=== PATIENT | female | born 1945 | race Caucasian/White ===

== ENCOUNTER → 2019-08-07 12:58 | Outpatient (BNVA) | payer MEDICARE, SELFPAY | PROVIDERS: Family Provider Family Medicine; Referring Provider Obstetrics & Gynecology Female Pelvic Medicine and Reconstructive Surgery; Visit Provider Obstetrics & Gynecology Female Pelvic Medicine and Reconstructive Surgery | DX: D25.9 Leiomyoma of uterus, unspecified (principal); R89.9 Unspecified abnormal finding in specimens from other organs, systems and tissues | CPT/HCPCS: 76830 ==

== ENCOUNTER 2019-11-11 09:24 | Day surgery (SDC) | payer MEDICARE, SELFPAY ==
[2019-11-05 16:25] LABS: Basophils % 0.3 %; Eosinophils # 0.1 10^3/uL (0.0-0.8); Eosinophils % 1.5 %; Hematocrit 24.9 % (37.0-47.0); Hemoglobin 8.2 g/dL (11.5-15.3); Lymphocytes # 2.8 10^3/uL (0.8-4.8); Lymphocytes % 42.7 %; Mean Corpuscular HGB Conc 32.9 g/dL (30.0-36.0); Mean Corpuscular Hemoglobin 32.7 pg (28.0-34.0); Mean Corpuscular Volume 99.2 fL (81-99); Mean Platelet Volume 9.1 fL (7.4-10.4); Monocytes # 0.5 10^3/uL (0.2-0.9); Monocytes % 7.4 %; Neutrophils # 3.2 10^3/uL (1.8-7.7); Neutrophils % 47.9 %; Nucleated Red Blood Cells % 0 %; Platelet Count 317 10^3/cmm (130-400); Red Blood Count 2.51 10^6/uL (4.1-5.3); Red Cell Distribution Width 13.4 % (12.1-15.1); White Blood Count 6.7 10^3/uL (4.0-10.0)
[2019-11-05 16:43] LABS: Alanine Aminotransferase 17 U/L (0-33); Albumin Level 4.3 g/dL (3.5-5.2); Alkaline Phosphatase 58 IU/L (35-105); Anion Gap 12.6 (5-19); Aspartate Amino Transferase 22 U/L (0-32); Blood Urea Nitrogen 22 mg/dL (8-23); Calcium 8.9 mg/dL (8.5-10.5); Carbon Dioxide 31 mmol/L (22-29); Chloride 100 mmol/L (98-107); Globulin 1.8 g/dL (1.3-4.6); Glucose 103 mg/dL (65-115); Osmolality Calculated 287 mOsm/kg (285-295); Potassium 3.6 mmol/L (3.5-5.1); Sodium 140 mmol/L (136-145); Total Bilirubin 0.2 mg/dL (0.15-1.2); Total Protein 6.1 g/dL (6.6-8.7)
[2019-11-05 16:49] LABS: INR 0.93 (0.8-1.2)
[2019-11-06 14:11] VITALS: BMI 21.2
--- NOTE | 2019-11-11 10:06 | W.PM.OPSUD ---
Surgery/Procedure H&P Update DATE OF PROCEDURE: November 11, 2019 DATE H&P PERFORMED: 11/07/19 H&P UPDATE INFORMATION: I have reviewed H&P completed within last 30 days, I have examined patient prior to procedure and No changes to prior documentation PREOP DIAGNOSIS: Bleeding per rectum PRIMARY INDICATION FOR PROCEDURE: The same PLANNED PROCEDURE: Operation Date: 11/11/19 10:40 Proposed Procedures p Colonoscopy 15199 K62.5(Not Applicable) - Nir Cavazos MD
[2019-11-11 10:08] VITALS: BP 145/93; PULSE 85; RESP 18; TEMP 36.6; O2SAT 97
[2019-11-11] MEDS: sodium chloride 0.9% 1,000 ML 30 ML IV (10:31)
--- NOTE | 2019-11-11 10:53 | ANES.PREANE2 ---
Pre-Anesthetic Assessment Pre-Anesthetic Assessment: Height/Weight: Height 1.63 m Weight 56.245 kg Temp Pulse Resp BP Pulse Ox 97.9 F 85 18 145/93 97 11/11/19 10:08 11/11/19 10:08 11/11/19 10:08 11/11/19 10:08 11/11/19 10:08 Preop Diagnosis: Bleeding per rectum Proposed Procedure: Operation Date: 11/11/19 10:40 Proposed Procedures p Colonoscopy 52158 K62.5(Not Applicable) - Nir Cavazos MD Last intake: Intake Last Liquid Date 11/10/19 Last Liquid Time 21:00 Last Solid Date 11/09/19 Last Solid Time 19:00 Social: Social History: Tobacco (quit) and No alcohol Exam: Pre-Anes Outpt Exam: alert, oriented x 3, clear to auscultation bilaterally and regular rate & rhythm Airway: Submandibular: WNL Cervical ROM: WNL MP: 2 Dentition: Other (teeth ok) History/ROS: No significant history except as noted Pulmonary: Pulmonary: None reported CV/HEM: CV/HEM: None reported : : None reported Hepatic: Hepatic: None reported GI: GI: None reported Metabolic: Metabolic: None reported Musc/skel: Musc/skel: Lower Back Pain and OA/DJD Neuropsych: Neuropsych: Anxiety and Depression Anesthetic Plan: ASA status: 3 Anesthesia: Anesthesia Evaluation and MAC Risk of > 500 ml blood loss (7ml/kg in children): No Meds/Allergies Current Medications: Current Medications Generic Name Dose Route Start Last Admin Trade Name Freq PRN Reason Stop Dose Admin Sodium Chloride 1,000 mls @ 30 ml s/hr 11/11/19 10:15 11/11/19 10:31 Sodium Chloride 0.9% IV 30 mls/hr .Q24H EDINSON Administration PFSH Anesthesia PFSH: Medical History Black tarry stools Bleeding per rectum Depression History of colitis Surgical History History of breast augmentation reports she has had 2 surgeries. Reports that she believes they were under the muscle History of eye surgery History of tonsillectomy and adenoidectomy age 10 Family History Mother Hypertension Thyroid disease Grandfather Diabetes maternal Sister Thyroid disease Social History Smoking and tobacco status: former smoker Quit status (tobacco): has quit using tobacco Year quit tobacco: 1980 Alcohol intake: current Alcohol intake frequency: few times a week Data Anesthesia CBC & Chem 7: 11/05/19 15:47 11/05/19 15:47 Cardiac Studies: No Data to Display
[2019-11-11 12:14] VITALS: BP 128/73; PULSE 85; RESP 16; TEMP 36.3; O2SAT 95
[2019-11-11 12:23] VITALS: BP 118/85; PULSE 83; RESP 18; O2SAT 99
== END 2019-11-11 12:48 | disposition home or self-care (01) ==
PROVIDERS: PCP Family Medicine; Visit Provider Surgery
PROC: 0DJD8ZZ Inspection of Lower Intestinal Tract, Via Natural or Artificial Opening Endoscopic (ICD-10-PCS; CPT 45378; principal; 2019-11-11 10:35)
DX: K62.5 Hemorrhage of anus and rectum (principal); K57.30 Diverticulosis of large intestine without perforation or abscess without bleeding; Z82.49 Family history of ischemic heart disease and other diseases of the circulatory system; Z87.891 Personal history of nicotine dependence; M19.90 Unspecified osteoarthritis, unspecified site
CPT/HCPCS: 12345; 36415; 45378; 80053; 85025; 85610; J2001; J2704; J7030

== ENCOUNTER 2019-12-01 10:34 | Inpatient (IN) | payer MEDICARE, SELFPAY ==
[2019-12-01] VITALS (47 sets, daily range): BP systolic 114–155; BP diastolic 46–80; PULSE 83–105; RESP 9–22; TEMP 36.7–37.3; O2SAT 94–100; BMI 21.1
--- NOTE | 2019-12-01 10:52 | ED_ITS ---
HPI - GI Bleed General: Chief complaint: GI Bleed Stated complaint: ABD PAIN BLOOD IN STOOL AND URINE Time Seen by Provider: 12/01/19 10:53 Source: patient Mode of arrival: ambulatory Limitations: no limitations History of Present Illness: HPI Narrative: 74-year-old female with a history of GI bleeds states she started having blood and blood in her stool yesterday and is continued today and has had weakness. She had an EGD done in April and a colonoscopy a month ago showed no findings. She denies any pain or fever. complaint: melena Onset (ago): day(s) Severity: moderate Relieving factors: none Exacerbating factors: none Associated symptoms: Denies abdominal pain, chills, easy bruising, fever(s), headache(s), nausea, rash or vomiting Review of Systems Const: Denies: fever(s), chills, body aches or change in appetite Eyes: Denies: blurry vision or eye discomfort ENMT: Denies: throat pain or dental pain Card: Denies: chest pain Resp: Denies: dyspnea GI: Reports: hematemesis and hematochezia; Denies: abdominal pain, nausea, vomiting or diarrhea : Denies: dysuria Musc: Denies: neck pain or back pain Skin/Breast: Denies: rash Neuro: Denies: headache(s) Psych: Denies: depression Ulises/Lymph: Denies: easy bruising All/Imm: Denies: urticaria PFSH ED PFSH: Medical History Black tarry stools Bleeding per rectum Depression History of colitis Surgical History History of breast augmentation reports she has had 2 surgeries. Reports that she believes they were under the muscle History of colonoscopy (~10/2019) History of eye surgery History of tonsillectomy and adenoidectomy age 10 Family History Mother Hypertension Thyroid disease Grandfather Diabetes maternal Sister Thyroid disease Social History Smoking and tobacco status: former smoker Quit status (tobacco): has quit using tobacco Year quit tobacco: 1980 Alcohol intake: current Alcohol intake frequency: few times a week Physical Exam Const: COMMON NORMALS: no acute distress, patient oriented x3 and healthy appearing HENMT: COMMON NORMALS: normocephalic and atraumatic HEAD & SCALP: normocephalic and atraumatic Eye: COMMON NORMALS: Equal, round and reactive pupils present and EOMs intact bilaterally PUPIL: Yes Equal, round and reactive pupils present Neck/C-Spine: COMMON NORMALS: full ROM and supple Chest: COMMONS NORMALS: normal inspection of the chest and normal palpation of entire chest wall Resp: COMMON NORMALS: normal respiratory effort, No retractions, No use of accessory muscles and clear to auscultation bilaterally AUSCULTATION: clear to auscultation bilaterally Cardio: COMMON NORMALS: regular rate, regular rhythm and No murmurs present (Cardio) RATE: regular rate RHYTHM: regular rhythm GI: COMMON NORMALS: Normal to inspection, nondistended, normoactive bowel sounds present, Soft to palpation, non-tender and no masses PALPATION: Yes Soft to palpation Extremity: COMMON NORMALS: normal to inspection and full ROM Neuro: COMMON NORMALS: patient oriented x3, moves all extremities and no focal motor deficits Psych: COMMON NORMALS: mental status grossly normal, Normal thought process present and cooperative THOUGHT PROCESS: Normal thought process present Skin: COMMON NORMALS: no rashes or lesions noted and no wounds GENERAL SKIN EXAM: no rashes or lesions noted Course Vital Signs: Vital signs: Vital Signs Temperature 98.7 F 12/01/19 10:49 Pulse Rate 104 H 12/01/19 10:49 Respiratory Rate 20 H 12/01/19 10:49 Blood Pressure 114/71 12/01/19 10:49 Pulse Oximetry 96 12/01/19 10:49 MDM - GI Bleed MDM Narrative: Medical decision making narrative: Elisha presents here with an upper GI bleed causing an EMEA. Patient started on Protonix and transfuse. Patient's blood pressure here is been stable. I spoke to Dr. osei who will admit I spoke to surgeon on-call Dr. Cavazos as well who is consulted. Lab Data: Labs: Lab Results 12/01/19 12/01/19 12/01/19 Range/Units 11:30 11:30 11:58 WBC 11.6 H (4.0-10.0) 10^3/ uL RBC 1.75 L (4.1-5.3) 10^6/u L Hgb 5.1 L* (11.5-15.3) g/dL Hct 17.0 L* (37.0-47.0) % MCV 97.1 (81-99) fL MCH 29.1 (28.0-34.0) pg MCHC 30.0 (30.0-36.0) g/dL RDW 14.2 (12.1-15.1) % Plt Count 291 (130-400) 10^3/c mm MPV 9.0 (7.4-10.4) fL Neut % (Auto) 85.6 % Lymph % (Auto) 10.1 % [place] % (Auto) 3.5 % Eos % (Auto) 0.1 % Baso % (Auto) 0.2 % Neut # (Auto) 9.9 H (1.8-7.7) 10^3/u L Lymph # (Auto) 1.2 (0.8-4.8) 10^3/u L [place] # (Auto) 0.4 (0.2-0.9) 10^3/u L Eos # (Auto) 0.0 (0.0-0.8) 10^3/u L Baso # (Auto) 0.0 (0.0-0.1) 10^3/u L Nucleated RBC % (a uto) 0 % Nucleated RBCs # 0.0 /100WBC Sodium 138 (136-145) mmol/L Potassium 4.3 (3.5-5.1) mmol/L Chloride 104 (98-107) mmol/L Carbon Dioxide 18 L (22-29) mmol/L Anion Gap 20.3 H (5-19) BUN 46 H (8-23) mg/dL Creatinine 0.8 (0.5-0.9) mg/dL Glucose 220 H (65-115) mg/dL Calculated Osmolal ity 291 (285-295) mOsm/k g Calcium 9.1 (8.5-10.5) mg/dL Total Bilirubin 0.2 (0.15-1.2) mg/dL AST 15 (0-32) U/L ALT 13 (0-33) U/L Alkaline Phosphata se 52 (35-105) IU/L Total Protein 5.4 L (6.6-8.7) g/dL Albumin 3.7 (3.5-5.2) g/dL Globulin 1.7 (1.3-4.6) g/dL Lipase 26 (13-60) U/L Urine Color (Yellow) Urine Appearance (CLEAR) Urine pH (5-7) Ur Specific Gravit y (1.005-1.030) Urine Protein (Negative) Urine Glucose (UA) (Normal) Urine Ketones (Negative) Urine Blood (Negative) Urine Nitrate (Negative) Urine Bilirubin (NEGATIVE) Urine Urobilinogen (Negative) mg/dL Ur Leukocyte Patrica ase (Negative) Blood Type O Negative Rho(D) Type Negative Antibody Screen Negative 12/01/19 Range/Units 12:02 WBC (4.0-10.0) 10^3/ uL RBC (4.1-5.3) 10^6/u L Hgb (11.5-15.3) g/dL Hct (37.0-47.0) % MCV (81-99) fL MCH (28.0-34.0) pg MCHC (30.0-36.0) g/dL RDW (12.1-15.1) % Plt Count (130-400) 10^3/c mm MPV (7.4-10.4) fL Neut % (Auto) % Lymph % (Auto) % [place] % (Auto) % Eos % (Auto) % Baso % (Auto) % Neut # (Auto) (1.8-7.7) 10^3/u L Lymph # (Auto) (0.8-4.8) 10^3/u L [place] # (Auto) (0.2-0.9) 10^3/u L Eos # (Auto) (0.0-0.8) 10^3/u L Baso # (Auto) (0.0-0.1) 10^3/u L Nucleated RBC % (a uto) % Nucleated RBCs # /100WBC Sodium (136-145) mmol/L Potassium (3.5-5.1) mmol/L Chloride (98-107) mmol/L Carbon Dioxide (22-29) mmol/L Anion Gap (5-19) BUN (8-23) mg/dL Creatinine (0.5-0.9) mg/dL Glucose (65-115) mg/dL Calculated Osmolal ity (285-295) mOsm/k g Calcium (8.5-10.5) mg/dL Total Bilirubin (0.15-1.2) mg/dL AST (0-32) U/L ALT (0-33) U/L Alkaline Phosphata se (35-105) IU/L Total Protein (6.6-8.7) g/dL Albumin (3.5-5.2) g/dL Globulin (1.3-4.6) g/dL Lipase (13-60) U/L Urine Color Yellow (Yellow) Urine Appearance Clear (CLEAR) Urine pH 5 (5-7) Ur Specific Gravit y 1.020 (1.005-1.030) Urine Protein Neg (Negative) Urine Glucose (UA) Norm (Normal) Urine Ketones Negative (Negative) Urine Blood Neg (Negative) Urine Nitrate Negative (Negative) Urine Bilirubin Neg (NEGATIVE) Urine Urobilinogen Norm (Negative) mg/dL Ur Leukocyte Patrica ase Negative (Negative) Blood Type Rho(D) Type Antibody Screen Imaging Data^: CXR: Radiologist's impression: [address] [address] XRay Report Signed Patient: Elisha Munoz Unit #: [id number] : 1945 Age/Sex: 74 / F ADM Date: 12/01/19 Loc: ER Room/Bed: Attending Dr: Ordering Provider/Ordering MD: Lisa Sheridan MD Date of Service: 12/01/19 Procedure(s): XR chest 1V portable [id number] Accession Number(s): [id number] Report Number: [id number] WS: [id number] XR chest 1V portable [id number] REASON FOR EXAM: weakness FINDINGS: Right breast augmentation is seen. Scoliotic curve convex to the right. The lung leos are well aerated. There is evidence of emphysema this changes noted. The heart is not enlarged. The hilum and apices normal. XR/XR chest 1V portable [id number] IMPRESSION: Emphysema this changes both lung leos. Right breast augmentation Severe scoliosis convex to the right EKG Data^: EKG 1: Attestation: I personally reviewed and interpreted this EKG as follows: EKG interpretation date: 12/01/19 EKG interpretation time: 11:23 Interpretation: sinus tach hr [address] or t wave abnormalities qrs 79 qtc 391 Critical Care Time Critical Care Time: Critical Care Time: Yes Total Critical Care Time: 35 Attestation: This case had a high probability of a clinically significant, sudden, or life threatening deterioration of this patient's condition which required my full and direct attention, intervention and personal management. Discharge Plan Discharge Patient Disposition: Admitted As Inpatient Clinical Impression: Upper gastrointestinal hemorrhage Anemia Qualifiers: Anemia type: unspecified type Qualified Code(s): D64.9 - Anemia, unspecified Condition: Stable Referrals: Fred Ballard MD [Primary Care Provider] - Coding Level of Care Code ED Quality Specialist for Chg Fwd Exam Comprehensive
--- NOTE | 2019-12-01 11:01 | XR_ITS ---
WS: [id number] XR chest 1V portable [id number] REASON FOR EXAM: weakness FINDINGS: Right breast augmentation is seen. Scoliotic curve convex to the right. The lung leos are well aerated. There is evidence of emphysema this changes noted. The heart is not enlarged. The hilum and apices normal. XR/XR chest 1V portable [id number] IMPRESSION: Emphysema this changes both lung loes. Right breast augmentation Severe scoliosis convex to the right
--- NOTE | 2019-12-01 11:01 | ECG_ITS ---
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 Measurements Intervals [place] Rate: 106 P: 83 OK: 152 QRS: -43 QRSD: 79 T: 76 QT: 329 QTc: 438 Interpretive Statements SINUS TACHYCARDIA MARKED LEFT AXIS DEVIATION [QRS AXIS < -30] Compared to ECG 04/26/2019 17:56:10 Left-axis deviation now present Sinus rhythm no longer present T-wave abnormality no longer present Electronically Signed On 12-02-2019 13:45:55 CDT by Lalitha Guan M.D. [id number]
[2019-12-01 11:54] LABS: Alanine Aminotransferase 13 U/L (0-33); Albumin Level 3.7 g/dL (3.5-5.2); Alkaline Phosphatase 52 IU/L (35-105); Anion Gap 20.3 (5-19); Aspartate Amino Transferase 15 U/L (0-32); Blood Urea Nitrogen 46 mg/dL (8-23); Calcium 9.1 mg/dL (8.5-10.5); Carbon Dioxide 18 mmol/L (22-29); Chloride 104 mmol/L (98-107); Creatinine Clr Calc Pharmacy 55.3282; Globulin 1.7 g/dL (1.3-4.6); Glucose 220 mg/dL (65-115); Lipase 26 U/L (13-60); Osmolality Calculated 291 mOsm/kg (285-295); Potassium 4.3 mmol/L (3.5-5.1); Sodium 138 mmol/L (136-145); Total Bilirubin 0.2 mg/dL (0.15-1.2); Total Protein 5.4 g/dL (6.6-8.7)
[2019-12-01 12:02] LABS: Basophils % 0.2 %; Eosinophils % 0.1 %; Lymphocytes # 1.2 10^3/uL (0.8-4.8); Lymphocytes % 10.1 %; Mean Corpuscular Hemoglobin 29.1 pg (28.0-34.0); Mean Corpuscular Volume 97.1 fL (81-99); Monocytes # 0.4 10^3/uL (0.2-0.9); Monocytes % 3.5 %; Neutrophils # 9.9 10^3/uL (1.8-7.7); Neutrophils % 85.6 %; Nucleated Red Blood Cells % 0 %; Platelet Count 291 10^3/cmm (130-400); Red Blood Count 1.75 10^6/uL (4.1-5.3); Red Cell Distribution Width 14.2 % (12.1-15.1); White Blood Count 11.6 10^3/uL (4.0-10.0)
[2019-12-01 12:06] LABS: Hemoglobin 5.1 g/dL (11.5-15.3)
[2019-12-01 12:07] LABS: Add Urine Microscopic? NO
[2019-12-01 12:14] LABS: Bilirubin Urine Neg (NEGATIVE); Blood Urine Neg (Negative); Glucose Urine UA Norm (Normal); Ketones Urine Negative (Negative); Leukocyte Esterase Urine Negative (Negative); Nitrate Urine Negative (Negative); Protein Urine Neg (Negative); Urine Appearance Clear (CLEAR); Urine Color Yellow (Yellow); Urobilinogen Urine Norm (Negative); pH Urine 5 (5-7)
[2019-12-01 12:58] LABS: INR 1.05 (0.8-1.2)
--- NOTE | 2019-12-01 13:42 | P.CONIM_ITS ---
Providers/Reason For Consult Consulting Physican/Specialty*: Nir Cavazos MD Reason for Consult*: Hematemesis and melena Primary Care Provider: Fred Ballard MD History of Present Illness History of Present Illness Chief Complaint: History of present illness: Elisha Munoz is a 74 year old female presents to the emergency department with history of hematemesis and melanotic stool, patient undergone a diagnostic EGD by me back in April 2019 was reported normal recently undergone a recent colonoscopy that showed diverticulosis. Current hemoglobin 5.1, patient was recently evaluated in my office after the colonoscopy early in the month of November and she was doing appropriately well denying any hematemesis or bleeding per rectum. According to the caring nurse in the emergency department patient had pinkish looking frothy spit not actual hematemesis but she did have black tarry stool. Patient was admitted on the hospitalist service and general surgery was consulted for further evaluation and potential intervention. Back in April 2019 patient had history of bleeding per rectum and was found to have colitis on the CT scan and at that time an EGD was done showed normal findings and I elected to postpone the colonoscopy due to the inflammatory process of the colon with the plan to get it done in 6 to 8 weeks after hospitalization yet because of COVID-19 the colonoscopy procedure was postponed till recently was done and showed tortuous colon with sigmoid colon diverticulosis. Review of Systems General: Reports: 10 or more systems reviewed and unremarkable except in HPI and below Meds/Allergies Home Medications and Allergies Home Medications Medication Instructions Recorded Confirmed Last Taken Type ascorbic acid (vitamin C) 500 mg 500 mg PO DAILY 08/03/19 12/01/19 11/30/19 History tablet lactobacillus combination no.8 3 3,000 mmu cells PO DAILY 08/03/19 12/01/19 11/30/19 History billion cell capsule multivitamin 1 tab PO DAILY 08/03/19 12/01/19 11/30/19 History tramadol 50 mg tablet 50 mg PO TID PRN 08/03/19 12/01/19 11/11/19 06:00 History calcium carbonate-vitamin D3 1 cap PO DAILY 11/06/19 12/01/19 11/30/19 History [Calcium 600 with Vitamin D3] magnesium citrate 250 mg PO DAILY 11/06/19 12/01/19 11/30/19 History Allergies Allergy/AdvReac Type Severity Reaction Status Date / Time No Known Allergies Allergy Verified 12/01/19 14:59 PFSH Acute PFSH: Medical History Black tarry stools Bleeding per rectum Depression History of colitis Surgical History History of breast augmentation reports she has had 2 surgeries. Reports that she believes they were under the muscle History of colonoscopy (~10/2019) History of eye surgery History of tonsillectomy and adenoidectomy age 10 Family History Mother Hypertension Thyroid disease Grandfather Diabetes maternal Sister Thyroid disease Social History Smoking and tobacco status: former smoker Quit status (tobacco): has quit using tobacco Year quit tobacco: 1980 Alcohol intake: current Alcohol intake frequency: few times a week Vitals/I&O/Wt Last Vital Signs Temp 98.5 F 12/01/19 13:30 Pulse 99 12/01/19 13:30 Resp 18 12/01/19 13:30 BP 114/71 12/01/19 10:49 Pulse Ox 97 12/01/19 13:30 11/30/19 12/01/19 12/01/19 22:59 06:59 14:59 Intake Total 0 / 0 Balance 0 / 0 Weight last 48 hrs Weight 123 lb Physical Exam Narrative: EXAM NARRATIVE: Patient is conscious alert oriented X3 BMI 21 Head and neck examination PERRLA no masses no cervical lymphadenopathy no jaundice Cardiac examination audible S1-S2 no murmurs no gallops no arrhythmias Chest is clear bilateral,abscence of Rhonchi or wheezes,no surgical emphysema Abdomen nontender nondistended soft no organomegaly guarding or rigidity/no signs of peritonitis Extremities no cyanosis no clubbing no edema A&P Assessment and plan (1) Black tarry stools: Plan of care; After thorough history and physical examination and reviewing the chart, plan to perform a diagnostic esophagogastroduodenoscopy with possible biopsy in the GI lab tomorrow. I discussed with the patient in detail the risk,benefits,alternatives and indications.The risk of aspiration, bleeding, soft tissue injury, perforation of the stomach/esophagus and other potential concomitant complications were explained to the patient in details.The patient understood this well and did agree to proceed. Rationale was carefully and clearly discussed with the patient.Appropriate informed consent have been reviewed and signed Also if the EGD turns out to be of insignificance my recommendation will is to obtain capsule endoscopy giving the fact that the patient had recent colonoscopy that showed diverticulosis. Patient can have clear liquid diet and keep n.p.o. after midnight Blood transfusion per hospitalist service Correction of coagulopathy if any We will continue coordinating with Dr. Bland Assurance and education All questions have been answered and all concerns have been addressed to annabelle ward's satisfaction. Status: Acute Consult Attestations Medical Necessity Statement: Per hospitalist service Time Spent in Patient Care: (>than 50% of time spent in counselling and/or direct pt care on unit) . Coding Level of Care Code Acute Plumbing Inspector for Chg Fwd Diagnoses Black tarry stools K92.1
--- NOTE | 2019-12-01 14:58 | PC.NURSE ---
1430-recd from e.d. with 1 unit prbcs infusing and protonix gtt,
[2019-12-01] MEDS: pantoprazole 40 MG in sodium chloride 0.9% (plus) 100 ML 20 MG IV ×3 (15:26→20:42)
--- NOTE | 2019-12-01 15:26 | PM.HP ---
Providers/Chief Complaint Admitting Physician: Jazz Bland MD Primary Care Provider: Fred Ballard MD Chief Complaint: ABD PAIN BLOOD IN STOOL AND URINE History of Present Illness Elisha Munoz is a 74 year old female with past medical history with chronic back pain who presented to the ER with c/o ellen and hematemesis. She had last presented with hematochezia in Apr 2019 and at the time was noted to have thickening with hyperemia involving left distal colon and sigmoid colon consistent with colitis or diverticulitis without drainable fluid collections. her Hb at the time was 7 for which she received tranfusion. She underwent EGD at the time which was unremarkable. She was scheduled for an interval colonoscopy after resolution of the colitis, eventually performed which showed tortuous colon with sigmoid colon diverticulosis. her Hb today is 5.0, currently receiving PRBC transfusion. Hemodynamically stable. Review of Systems General: Reports: 10 or more systems reviewed and unremarkable except in HPI and below Const: Denies: fever(s), chills or body aches Eyes: Denies: change in vision, blurry vision or photophobia ENMT: Reports: hoarseness; Denies: throat pain, enlarged tonsils, odynophagia or nasal congestion Card: Denies: chest pain, palpitations, irregular heart rhythm, edema, swelling of feet/ankles, lightheadedness, pre-syncope, dyspnea on exertion or orthopnea Resp: Denies: dyspnea, productive cough, non-productive cough, wheezing, stridor, pain on inspiration, change in phlegm color, hemoptysis or chest congestion GI: Denies: abdominal pain, nausea, vomiting, hematemesis, coffee ground emesis, dysphagia, heartburn, diarrhea, constipation, GI cramping, change in stool character, hematochezia or melena : Denies: flank pain, difficulty voiding, dysuria, urinary frequency, urinary urgency, urinary hesitancy or hematuria Musc: Denies: neck pain, back pain, extremity pain, joint swelling, joint warmth or deformity Neuro: Denies: headache(s), numbness in extremities, weakness in extremities, sensory changes, difficulty walking, frequent falls, dizziness, vertigo, behavioral changes, Slurred speech present or seizure-like activity Psych: Denies: anxiety, depression, suicidal ideation or homicidal ideation Endo: Denies: polyuria, polydipsia, tired all the time, cold intolerance or hot flashes Ulises/Lymph: Denies: easy bruising or easy bleeding Medications/Allergies Home Medications Medication Instructions Recorded Confirmed Last Taken Type ascorbic acid (vitamin C) 500 mg 500 mg PO DAILY 08/03/19 12/01/19 11/30/19 History tablet lactobacillus combination no.8 3 3,000 mmu cells PO DAILY 08/03/19 12/01/19 11/30/19 History billion cell capsule multivitamin 1 tab PO DAILY 08/03/19 12/01/19 11/30/19 History tramadol 50 mg tablet 50 mg PO TID PRN 08/03/19 12/01/19 11/11/19 06:00 History calcium carbonate-vitamin D3 1 cap PO DAILY 11/06/19 12/01/19 11/30/19 History [Calcium 600 with Vitamin D3] magnesium citrate 250 mg PO DAILY 11/06/19 12/01/19 11/30/19 History Allergies Allergy/AdvReac Type Severity Reaction Status Date / Time No Known Allergies Allergy Verified 12/01/19 14:59 PFSH Acute PFSH: Medical History Black tarry stools Bleeding per rectum Depression History of colitis Surgical History History of breast augmentation reports she has had 2 surgeries. Reports that she believes they were under the muscle History of colonoscopy (~10/2019) History of eye surgery History of tonsillectomy and adenoidectomy age 10 Family History Mother Hypertension Thyroid disease Grandfather Diabetes maternal Sister Thyroid disease Social History Smoking and tobacco status: former smoker Quit status (tobacco): has quit using tobacco Year quit tobacco: 1980 Alcohol intake: current Alcohol intake frequency: few times a week Vitals/I&O/Wt Last Vital Signs Temp 98.5 F 12/01/19 13:53 Pulse 93 12/01/19 15:00 Resp 19 H 12/01/19 15:00 BP 146/80 12/01/19 15:00 Pulse Ox 98 12/01/19 15:00 12/01/19 12/01/19 12/01/19 06:59 14:59 22:59 Intake Total 0 / 0 Balance 0 / 0 Weight last 48 hrs Weight 55.792 kg Physical Exam Narrative: EXAM NARRATIVE: GEN: Awake, alert and oriented, no acute distress HEENT: pallor+ CVS: S1S2 N RS: CTA B/L Abd: Soft, nt/nd , bs+ INSTANT PRINT OPERATOR: no focal neuro deficits Data : 12/01/19 11:58 12/01/19 11:30 A&P Assessment and plan (1) Anemia: Status: Acute Qualifiers: Anemia type: unspecified type Qualified Code(s): D64.9 - Anemia, unspecified (2) Melena: Status: Acute Additional A&P Information Admit to ICU # Ellen/likely UGI bleed Start protonix infusion @8mg/hr clear liquid diet for now, NPO post midnight for UGIE in am Last UGIE in 04/2019 and subsequent colonoscopy was unrevealing for obvious sources of bleeding If endoscopy tomorrow remains unrevealing, will likely need capsule endoscopy given degree of anemia and need to r/o GI bleeding # Anemia Likely 2/2 blood loss hemodynamicallys stable Getting PRBC transfusion currently check Fe panel, b12, folate , LDH, haptoglobins to r/o other contributers to anemia, though this is less likely given that her other RBC indices and RDW are WNl and T.bili are normal. Full code Dvt ppx: hold for now Attestations Medical Necessity Statement*: anticipate> 2 midnight admission for management of UGI bleed and resulting anemia Coding Level of Care Code Acute Crap Game Box Person for Winifred Fwd Diagnoses Anemia D64.9 Anemia type: unspecified type Melena K92.1
[2019-12-01 17:28] LABS: Iron 28 ug/dL (37-145); Lactate Dehydrogenase 161 U/L (135-214)
[2019-12-01 17:44] LABS: Vitamin B12 371 pg/mL (232-1245)
--- NOTE | 2019-12-01 17:57 | PC.NURSE ---
2nd unit of PRBC started. blood verification complete. computer didn't save data. override completed with Zainab Suazo RN
--- NOTE | 2019-12-01 18:09 | PC.NURSE ---
lab notified of blood transfusion completion
[2019-12-01] MEDS: dextrose 5%-sod chloride 0.9% 1,000 ML 75 ML IV (18:45)
[2019-12-01] MEDS: ondansetron 2 mg/ML SDV 2 mL 4 MG IVP (18:46)
[2019-12-01] MEDS: morphine 4 mg/mL SDV 1 mL 2 MG IVP (18:47)
[2019-12-01] MEDS: sodium chloride 0.9% (100 ml) 100 ML 150 ML (19:04)
[2019-12-01 19:19] LABS: Hematocrit 23.2 % (37.0-47.0); Hemoglobin 7.5 g/dL (11.5-15.3)
[2019-12-01 19:27] LABS: Folate Level > 20.0 ng/mL (4.8-37.3)
[2019-12-01 23:19] LABS: Hematocrit 22.9 % (37.0-47.0); Hemoglobin 7.2 g/dL (11.5-15.3)
[2019-12-02] VITALS (33 sets, daily range): BP systolic 114–152; BP diastolic 58–81; PULSE 70–104; RESP 10–24; TEMP 36.6–37; O2SAT 92–100
[2019-12-02] MEDS: morphine 4 mg/mL SDV 1 mL 2 MG IVP ×2 (02:16→10:29)
[2019-12-02] MEDS: pantoprazole 40 MG in sodium chloride 0.9% (plus) 100 ML 20 MG IV ×3 (02:19→11:00)
[2019-12-02 05:30] LABS: Hematocrit 23.1 % (37.0-47.0); Hemoglobin 7.2 g/dL (11.5-15.3)
[2019-12-02] MEDS: dextrose 5%-sod chloride 0.9% 1,000 ML 75 ML IV (06:18)
[2019-12-02] MEDS: ondansetron 2 mg/ML SDV 2 mL 4 MG IVP (10:30)
[2019-12-02 11:10] LABS: Hemoglobin 6.6 g/dL (11.5-15.3)
[2019-12-02 11:17] LABS: Hematocrit 20.8 % (37.0-47.0)
--- NOTE | 2019-12-02 11:31 | PM.PN ---
Subjective Subjective: Interval history: Hb this morning at 7.2--> 6.6. received 2PRBC yesterday. Ordered for 2 additional units today. No c/o dizziness, shortness of breath, dyspnea. Awaiting UGIE this afternoon. Last episode of ellen yesterday. No hematemesis Medications: Reviewed: Yes Vitals/I&O/Wt Last Vital Signs Temp 98.5 F 12/02/19 08:01 Pulse 95 12/02/19 09:00 Resp 18 12/02/19 10:29 BP 124/67 12/02/19 09:00 Pulse Ox 98 12/02/19 10:29 12/01/19 12/02/19 12/02/19 22:59 06:59 14:59 Intake Total 914 / 914 1045.917 / 9.7 94 / 94 Output Total 350 / 350 Balance 914 / 914 1045.917 / 9.917 -256 / -256 Weight last 48 hrs Weight 55.792 kg Physical Exam Narrative: EXAM NARRATIVE: GEN: Awake, alert and oriented, no acute distress HEENT: NC/AT CVS: S1S2 N RS: CTA B/L Abd: Soft, nt/nd , bs+ UTILIZATION ENGINEER: no focal neuro deficits EXT: No pedal edema, cyanosis or clubbing Data : 12/02/19 10:59 12/01/19 11:30 A&P Assessment and plan (1) Anemia: Status: Acute Qualifiers: Anemia type: unspecified type Qualified Code(s): D64.9 - Anemia, unspecified (2) Melena: Status: Acute Additional A&P Information Continue to monitor in ICU # Ellen/likely UGI bleed Continue protonix infusion @8mg/hr NPO post midnight for UGIE in am Last UGIE in 04/2019 and subsequent colonoscopy was unrevealing for obvious sources of bleeding If endoscopy tomorrow remains unrevealing, will likely need capsule endoscopy given degree of anemia and need to r/o GI bleeding # Anemia Likely 2/2 blood loss Patient reports that she had been experiencing light headedness and dyspnea one xertion at home ~48 hrs prior to admission, during the same time that black stools started. hemodynamically stable s/p 2 PRBC transfusion, ordered fro additional 2 units today. Fe level at 28, b12, folate WNL, LDH, haptoglobins to r/o other contributers to anemia, though this is less likely given that her other RBC indices and RDW are WNl and T.bili are normal. Full code Dvt ppx: hold for now Attestations Medical Necessity Statement*: GI bleeding. for endoscopy today Coding Level of Care Code Acute Plastics Bench Mechanic for g Fwd Diagnoses Anemia D64.9 Anemia type: unspecified type Melena K92.1
--- NOTE | 2019-12-02 12:51 | ANES.PREANE2 ---
Pre-Anesthetic Assessment Pre-Anesthetic Assessment: Height/Weight: Height 1.63 m Weight 55.792 kg Temp Pulse Resp BP Pulse Ox 98.2 F 88 13 146/79 98 12/02/19 12:00 12/02/19 12:00 12/02/19 12:00 12/02/19 12:00 12/02/19 12:00 Preop Diagnosis: Acute anemia with melanotic stool Proposed Procedure: Operation Date: 12/02/19 12:50 Proposed Procedures p EGD(Not Applicable) - Nir Cavazos MD Was Beta Ravi taken within 24 hours: N/A Last Intake: 23:00 Social: Social History: No alcohol and No tobacco Exam: Pre-Anes Outpt Exam: alert, oriented x 3, clear to auscultation bilaterally and regular rate & rhythm Airway: Submandibular: WNL Cervical ROM: WNL MP: 1 Dentition: Full Pulmonary: Pulmonary: None reported CV/HEM: CV/HEM: Anemia : : None reported Hepatic: Hepatic: None reported GI: GI: None reported Metabolic: Metabolic: None reported Musc/skel: Musc/skel: Lower Back Pain and Scoliosis Neuropsych: Neuropsych: Anxiety and Depression Anesthetic Plan: ASA status: 3 Anesthesia: Anesthesia Evaluation and MAC Risk of > 500 ml blood loss (7ml/kg in children): No Meds/Allergies Current Medications: Current Medications Generic Name Dose Route Start Last Admin Trade Name Freq PRN Reason Stop Dose Admin Dextrose/Sodium Ch loride 1,000 mls @ 75 ml s/hr 12/01/19 17:00 12/02/19 06:18 Dextrose 5%-Sod Chloride 0.9% IV 75 mls/hr .[id number] EDINSON Administration Pantoprazole Sodiu m 40 mg/ 100 mls @ 20 mls/ hr 12/01/19 17:30 12/02/19 11:00 Sodium Chloride IV 8 mg/hr .Q5H EDINSON 20 mls/hr Administration 8 MG/HR Morphine Sulfate 2 mg 12/01/19 16:54 12/02/19 10:29 Morphine IVP 2 mg Q4H PRN Administration SEVERE PAIN Ondansetron HCl 4 mg 12/01/19 16:54 12/02/19 10:30 Zofran IVP 4 mg Q8H PRN Administration vomiting, or N/V if npo PFSH Anesthesia PFSH: Medical History Black tarry stools Bleeding per rectum Depression History of colitis Surgical History History of breast augmentation reports she has had 2 surgeries. Reports that she believes they were under the muscle History of colonoscopy (~10/2019) History of eye surgery History of tonsillectomy and adenoidectomy age 10 Family History Mother Hypertension Thyroid disease Grandfather Diabetes maternal Sister Thyroid disease Social History Smoking and tobacco status: former smoker Quit status (tobacco): has quit using tobacco Year quit tobacco: 1980 Alcohol intake: current Alcohol intake frequency: few times a week Data Anesthesia CBC & Chem 7: 12/02/19 10:59 12/01/19 11:30 Other Labs: Laboratory Results - last 48 hr 12/01/19 12/01/19 12/01/19 11:30 11:30 11:30 WBC RBC Hgb Hct MCV MCH MCHC RDW Plt Count MPV Neut % (Auto) Lymph % (Auto) [place] % (Auto) Eos % (Auto) Baso % (Auto) Neut # (Auto) Lymph # (Auto) [place] # (Auto) Eos # (Auto) Baso # (Auto) Nucleated RBC % (auto) Nucleated RBCs # PT 14.00 H INR 1.05 Sodium 138 Potassium 4.3 Chloride 104 Carbon Dioxide 18 L Anion Gap 20.3 H BUN 46 H Creatinine 0.8 Glucose 220 H Calculated Osmolality 291 Calcium 9.1 Iron Total Bilirubin 0.2 AST 15 ALT 13 Alkaline Phosphatase 52 Lactate Dehydrogenase Total Protein 5.4 L Albumin 3.7 Globulin 1.7 Lipase 26 Vitamin B12 Folate Urine Color Urine Appearance Urine pH Ur Specific [place] Urine Protein Urine Glucose (UA) Urine Ketones Urine Blood Urine Nitrate Urine Bilirubin Urine Urobilinogen Ur Leukocyte Esterase Blood Type O Negative Rho(D) Type Negative Antibody Screen Negative Crossmatch See Detail 12/01/19 12/01/19 12/01/19 11:30 11:30 11:58 WBC 11.6 H RBC 1.75 L Hgb 5.1 L* Hct 17.0 L* MCV 97.1 MCH 29.1 MCHC 30.0 RDW 14.2 Plt Count 291 MPV 9.0 Neut % (Auto) 85.6 Lymph % (Auto) 10.1 [place] % (Auto) 3.5 Eos % (Auto) 0.1 Baso % (Auto) 0.2 Neut # (Auto) 9.9 H Lymph # (Auto) 1.2 [place] # (Auto) 0.4 Eos # (Auto) 0.0 Baso # (Auto) 0.0 Nucleated RBC % (auto) 0 Nucleated RBCs # 0.0 PT INR Sodium Potassium Chloride Carbon Dioxide Anion Gap BUN Creatinine Glucose Calculated Osmolality Calcium Iron 28 L Total Bilirubin AST ALT Alkaline Phosphatase Lactate Dehydrogenase 161 Total Protein Albumin Globulin Lipase Vitamin B12 371 Folate > 20.0 Urine Color Urine Appearance Urine pH Ur Specific [place] Urine Protein Urine Glucose (UA) Urine Ketones Urine Blood Urine Nitrate Urine Bilirubin Urine Urobilinogen Ur Leukocyte Esterase Blood Type Rho(D) Type Antibody Screen Crossmatch 12/01/19 12/01/19 12/01/19 12:02 19:10 23:06 WBC RBC Hgb 7.5 L D 7.2 L Hct 23.2 L D 22.9 L MCV MCH MCHC RDW Plt Count MPV Neut % (Auto) Lymph % (Auto) [place] % (Auto) Eos % (Auto) Baso % (Auto) Neut # (Auto) Lymph # (Auto) [place] # (Auto) Eos # (Auto) Baso # (Auto) Nucleated RBC % (auto) Nucleated RBCs # PT INR Sodium Potassium Chloride Carbon Dioxide Anion Gap BUN Creatinine Glucose Calculated Osmolality Calcium Iron Total Bilirubin AST ALT Alkaline Phosphatase Lactate Dehydrogenase Total Protein Albumin Globulin Lipase Vitamin B12 Folate Urine Color Yellow Urine Appearance Clear Urine pH 5 Ur Specific [place] 1.020 Urine Protein Neg Urine Glucose (UA) Norm Urine Ketones Negative Urine Blood Neg Urine Nitrate Negative Urine Bilirubin Neg Urine Urobilinogen Norm Ur Leukocyte Esterase Negative Blood Type Rho(D) Type Antibody Screen Crossmatch 12/02/19 12/02/19 05:10 10:59 WBC RBC Hgb 7.2 L 6.6 L Hct 23.1 L 20.8 L* MCV MCH MCHC RDW Plt Count MPV Neut % (Auto) Lymph % (Auto) [place] % (Auto) Eos % (Auto) Baso % (Auto) Neut # (Auto) Lymph # (Auto) [place] # (Auto) Eos # (Auto) Baso # (Auto) Nucleated RBC % (auto) Nucleated RBCs # PT INR Sodium Potassium Chloride Carbon Dioxide Anion Gap BUN Creatinine Glucose Calculated Osmolality Calcium Iron Total Bilirubin AST ALT Alkaline Phosphatase Lactate Dehydrogenase Total Protein Albumin Globulin Lipase Vitamin B12 Folate Urine Color Urine Appearance Urine pH Ur Specific [place] Urine Protein Urine Glucose (UA) Urine Ketones Urine Blood Urine Nitrate Urine Bilirubin Urine Urobilinogen Ur Leukocyte Esterase Blood Type Rho(D) Type Antibody Screen Crossmatch Cardiac Studies: No Data to Display
[2019-12-02] MEDS: sodium chloride 0.9% (100 ml) 100 ML 30 ML (12:56)
--- NOTE | 2019-12-02 13:51 | ANE.PACU2 ---
Inpatient post-anesthesia follow up: Airway intact: Yes Vital signs: Temperature 98.5 F Pulse Rate [Monito r] 104 Pulse Rate 89 Respiratory Rate 22 Blood Pressure [Ri ght Arm] 114/71 Blood Pressure 119/58 Pulse Oximetry 98 Oxygen Delivery Me thod Room Air Oxygen Flow Rate Fraction of Inspir ed Oxygen Hydration adequate: Yes Nausea and vomiting: Yes Pain level: 1 Mental status: Baseline
--- NOTE | 2019-12-02 14:55 | P.TS_ITS ---
Transfer Summary Providers Date of Admission: 12/01/19 12:32 Date of Discharge: 12/02/19 Attending Provider at Admission: Jazz Bland MD Attending Provider at Transfer: Jazz Bland MD Primary Care Provider: Fred Ballard MD Anticipated Date of Transfer: Anticipated date of transfer: 12/02/19 Receiving Facility & Provider: Receiving Provider: [Dr. Cha] Receiving facility: [[facility]] Diagnoses at Discharge Discharge Diagnosis (1) Anemia: Status: Acute Qualifiers: Anemia type: unspecified type Qualified Code(s): D64.9 - Anemia, unspecified (2) Melena: Status: Acute Reason for Visit Reason for Visit: ABD PAIN BLOOD IN STOOL AND URINE Hospital Course Discharge Summary: Elisha Munoz is a 74 year old female with past medical history with chronic back pain who takes tramadol, no reported NSAIDs, who presented to the ER on 11/30 with c/o multiple episodes of jr over the past 48 hrs and 1 episode of hematemesis at home. Her Hb at the time was 5, down from 8.2 in october 2019. She reported symptoms of dizziness and exertional fatigue over the same 48 hr period. She was started on protonix infusion, received 2 PRBC yesetrday, Hb initially improved to 7.2, but then this am was at 6.6. Two units of PRBC are currently transfusing. She underwent UGIE this afternoon by gen/surg which did not show any ulcers or lesions in the stomach, however fresh blood was noted in the stomach and per report appeared to be from a small bowel source that could not be visualized on UGIE. Of note, she had episode of hematochezia in Apr 2019 at which time she had suspected colitis, UGIE was perfromed in apr 2019 and was unremarkable. A colonoscopy was planned and eventually performed approx 3 weeks ago (delayed due to pandemic) which showed tortuous colon with sigmoid colon diverticulosis without active bleeding. She currently denies any c/o fever, cough, dyspnea, chest pain. CXR shows chronic emphysematous changes withotu any lung consolidation. She is being transferred now to [facility] in [place] in view of ongoing GI bleeding, symptomatic anemia and need for gastroenterology specialty services which are not available at [facility]. Her HR has ranged between 79-98/min, BP 122-143 systolic. She has remained hemodynamically stable during admission. Physical Exam Narrative: EXAM NARRATIVE: GEN: Awake, alert and oriented, no acute distress HEENT: pallor+ CVS: S1S2 N RS: CTA B/L Abd: Soft, nt/nd , bs+ PEN MAKER: no focal neuro deficits TS Data Data Completed and Pending: Completed Studies During Hospitalization Category Date Time Status XR chest 1V rakesh ble [id number] Stat Exams 12/01/19 11:01 Completed Pending at discharge Category Date Time Status ABO/Rh Type Routi ne Lab 12/01/19 11:30 Results Complete Crossmat ch Routine Lab 12/01/19 11:30 Results FFP [Frozem Plasm a FZ <24 1st Cont] Routine Lab 12/02/19 14:00 Results Hemoglobin and He matocrit Q6H Lab 12/02/19 17:00 Ordered Hemoglobin and He matocrit Q6H Lab 12/02/19 23:00 Ordered Hemoglobin and He matocrit Q6H Lab 12/03/19 05:47 Ordered Leukocyte Reduced RBC Stat Lab 12/01/19 11:30 Results Retype for XM Rou kate Lab 12/01/19 11:30 Results Type and Screen R outine Lab 12/01/19 11:30 Results Labs from last 24 hours 12/02/19 12/02/19 12/01/19 10:59 05:10 23:06 Hgb 6.6 L 7.2 L 7.2 L Hct 20.8 L* 23.1 L 22.9 L Iron Lactate Dehydrogen ase Vitamin B12 Folate Blood Type Rho(D) Type Antibody Screen Crossmatch 12/01/19 12/01/19 12/01/19 19:10 11:30 11:30 Hgb 7.5 L D Hct 23.2 L D Iron 28 L Lactate Dehydrogen ase 161 Vitamin B12 371 Folate > 20.0 Blood Type Rho(D) Type Antibody Screen Crossmatch 12/01/19 11:30 Hgb Hct Iron Lactate Dehydrogen ase Vitamin B12 Folate Blood Type O Negative Rho(D) Type Negative Antibody Screen Negative Crossmatch See Detail Vitals: Last Vital Signs Temp 98.3 F 12/02/19 13:50 Pulse 88 12/02/19 14:00 Resp 16 12/02/19 14:00 BP 127/58 12/02/19 14:00 Pulse Ox 98 12/02/19 14:00 TS Medications Medications Home Medications ascorbic acid (vitamin C) 500 mg tablet 500 mg PO DAILY 08/03/19 [History Confirmed 12/01/19] lactobacillus combination no.8 3 billion cell capsule 3,000 mmu cells PO DAILY 08/03/19 [History Confirmed 12/01/19] multivitamin 1 tab PO DAILY 08/03/19 [History Confirmed 12/01/19] tramadol 50 mg tablet 50 mg PO TID PRN 08/03/19 [History Confirmed 12/01/19] calcium carbonate-vitamin D3 [Calcium 600 with Vitamin D3] 1 cap PO DAILY 11/06/19 [History Confirmed 12/01/19] magnesium citrate 250 mg PO DAILY 11/06/19 [History Confirmed 12/01/19] Active Medications Acetaminophen (Tylenol) 650 mg PO Q6H PRN PRN Reason: Mild/Mod Pain Or Temp >/= 101 Albuterol Sulfate (Albuterol) 2.5 mg INHALATION ONCE PRN PRN Reason: WHEEZING Famotidine (Pepcid Inj) 20 mg IVP ONCE PRN PRN Reason: HEARTBURN Fentanyl (Sublimaze) 50 mcg IVP Q10M PRN PRN Reason: Preop Pain Fentanyl (Sublimaze) 100 mcg IVP ONCE PRN PRN Reason: Per anesthesia for block Dextrose/Sodium Chloride (Dextrose 5%-Sod Chloride 0.9%) 1,000 mls @ 75 mls/hr IV .[id number] [facility] Last Admin: 12/02/19 06:18 Dose: 75 mls/hr Documented by: Pantoprazole Sodium 40 mg/ (Sodium Chloride) 100 mls @ 20 mls/hr IV .Q5H [facility] Last Admin: 12/02/19 11:00 Dose: 8 mg/hr, 20 mls/hr Documented by: Sodium Chloride (Sodium Chloride 0.9%) 1,000 mls @ 30 mls/hr IV .Q24H [facility] Stop: 12/03/19 12:14 Sodium Chloride (Sodium Chloride 0.9%) 1,000 mls @ 30 mls/hr IV .Q24H [facility] Ipratropium [place] (Atrovent Neb) 0.5 mg INHALATION ONCE PRN PRN Reason: WHEEZING Lidocaine HCl (Lidocaine 1%) 0.1 ml INTRADERMA PRN PRN PRN Reason: anesthetic prior to IV start Stop: 12/03/19 12:03 Lidocaine HCl (Lidocaine 2% Viscous) 1 ml TOPICAL PRN PRN PRN Reason: Anesthetic prior to IV start Metoclopramide HCl (Reglan) 10 mg IVP ONCE PRN PRN Reason: N/V if zofran ineffective Midazolam HCl (Versed) 5 mg IVP ONCE PRN PRN Reason: Per anesthesia for block Midazolam HCl (Versed) 2 mg IVP Q5M PRN PRN Reason: Preop Anxiety Morphine Sulfate (Morphine) 2 mg IVP Q4H PRN PRN Reason: SEVERE PAIN Last Admin: 12/02/19 10:29 Dose: 2 mg Documented by: Naloxone HCl (Narcan) 0.1 mg IVP Q2M PRN PRN Reason: OPIATERV Ondansetron HCl (Zofran) 4 mg IVP Q8H PRN PRN Reason: vomiting, or N/V if npo Last Admin: 12/02/19 10:30 Dose: 4 mg Documented by: Ondansetron HCl (Zofran) 4 mg IVP Q5M PRN PRN Reason: NAUSEA AND VOMITING Scopolamine (Transderm-Scop) 1 patch TRANSDERMA ONCE PRN PRN Reason: Nausea/ Vomiting Prophylaxis Discharge Plan Discharge Patient Disposition: Xfer Other Condition: Stable Prescriptions: No Action tramadol 50 mg tablet 50 mg PO TID PRN (Reason: Pain) RF: 0 multivitamin [Daily Multi-Vitamin] Tablet 1 tab PO DAILY RF: 0 Adult Probiotic 3 billion cell capsule 3,000 mmu cells PO DAILY RF: 0 ascorbic acid (vitamin C) [Vitamin C] 500 mg tablet 500 mg PO DAILY RF: 0 magnesium citrate 125 mg Capsule 250 mg PO DAILY RF: 0 calcium carbonate-vitamin D3 [Calcium 600 with Vitamin D3] 600 mg(1,500mg) - 500 unit Capsule 1 cap PO DAILY RF: 0 Discharge Orders: Discharge Order (Routine); Ordered 12/02/19 Ordered By: Jazz Bland Referrals: Fred Ballard MD [Primary Care Provider] - Transfer Attestations Time Spent in Transfer Care*: greater than 30 min Quality Metrics Clinical Quality Measures: During this hospital stay, did patient experience: None Coding Level of Care Code Acute Briquette Machine Operator for g Fwd Diagnoses Anemia D64.9 Anemia type: unspecified type Melena K92.1
--- NOTE | 2019-12-02 16:03 | PC.NURSE ---
[facility] PRBCs were started just prior to departure. I unit of FFP was started about 30 minutes prior to departure. These product administrations will be finished by the Air Crew during flight. Patient was in stable condition at time of departure.
== END 2019-12-02 16:03 | disposition short-term general hospital (02) | DRG 379 ==
LOC: ER 12:36 → ICU 13:12
PROVIDERS: Surgery; Admitting Provider Student in an Organized Health Care Education/Training Program; Emergency Provider Emergency Medicine; PCP Family Medicine; Visit Provider Student in an Organized Health Care Education/Training Program
PROC: 0DJ08ZZ Inspection of Upper Intestinal Tract, Via Natural or Artificial Opening Endoscopic (ICD-10-PCS; CPT 43235; principal; 2019-12-02 12:50)
DX: K92.2 Gastrointestinal hemorrhage, unspecified (principal); K57.30 Diverticulosis of large intestine without perforation or abscess without bleeding; Z87.891 Personal history of nicotine dependence; G89.29 Other chronic pain; M54.9 Dorsalgia, unspecified; F32.9 Major depressive disorder, single episode, unspecified; D50.9 Iron deficiency anemia, unspecified; K44.9 Diaphragmatic hernia without obstruction or gangrene
CPT/HCPCS: 12345; 36415; 36430; 43235; 71045; 80053; 81003; 82607; 82746; 83540; 83615; 83690; 85014; 85018; 85025; 85610; 86850; 86900; 86920; 86927; 93005; 96375; 99283; C9113; J2270; J2405; J7050; P9016; P9017

== ENCOUNTER → 2020-09-05 10:37 | Outpatient (BNVA) | payer OTHER, SELFPAY | PROVIDERS: PCP Family Medicine; Referring Provider Family Medicine; Visit Provider Anesthesiology Pain Medicine | DX: M47.816 Spondylosis without myelopathy or radiculopathy, lumbar region (principal); M19.90 Unspecified osteoarthritis, unspecified site; M54.16 Radiculopathy, lumbar region; M54.9 Dorsalgia, unspecified; M25.551 Pain in right hip; M25.552 Pain in left hip; Z79.891 Long term (current) use of opiate analgesic | CPT/HCPCS: 99214 ==